=== PATIENT | male | born 1970 | race Caucasian/White ===

== ENCOUNTER 2019-12-04 08:03 | Emergency (ER) | payer SELFPAY ==
--- NOTE | ~2019-12-04 | XR_ITS ---
EXAMINATION: XR tibia fibula LT 2V INDICATION: Skin infection, leg pain TECHNIQUE: Two views of the left tibia and fibula are obtained. COMPARISON: None available FINDINGS: There is no fracture, dislocation, or subluxation. The bones and joint spaces are normal. S oft tissue swelling overlies the anterior aspect of the proximal tibia. No underlying osseous abnorma lity is identified. IMPRESSION: 1. Soft tissue swelling without acute osseous abnormality. Reviewed, dictated and finalized at location A.
[2019-12-04 08:08] VITALS: BP 133/82; PULSE 109; RESP 16; TEMP 37.2; O2SAT 100
--- NOTE | 2019-12-04 08:18 | ED.GENADULT ---
HPI - General Adult General Chief complaint: Extremity Injury, Lower Stated complaint: injury to left leg Time Seen by Provider: 12/04/19 08:06 Source: patient Mode of arrival: ambulatory Limitations: no limitations History of Present Illness HPI narrative: 49-year-old male patient presents to the [facility] with complaints of left leg pain for the past 10 days. Patient states he hit it on a metal bench about 10 days ago. Patient states it is now swollen, very painful to the touch, and warm. Patient states he has been taking Tylenol and ibuprofen for pain. Patient states he is able to walk on it but does have pain at times with walking on it. Patient denies any body aches, chills or fevers. Patient states his last tetanus shot was approximately less than 5 years ago. Related Data Allergies Allergy/AdvReac Type Severity Reaction Status Date / Time No Known Allergies Allergy Verified 12/04/19 08:22 Review of Systems Review of Systems: Narrative: CONSTITUTIONAL: Denies fever, chills, or sweats. EYES: Denies visual changes, redness, or discharge. ENT: Denies rhinorrhea, congestion, sore throat, or otalgia. CARDIOVASCULAR: Denies chest pain, palpitations, or edema. RESPIRATORY: Denies cough or dyspnea. GASTROINTESTINAL: Denies abdominal pain, nausea, vomiting, or diarrhea. GENITOURINARY: Denies dysuria or hematuria. SKIN: Denies rash or itching. Positive wound from trauma to left leg x10 days MUSCULOSKELETAL: Denies back pain, joint pain, or myalgia. NEUROLOGIC: Denies headache, numbness, or weakness. PSYCHIATRIC: Denies anxiety or depression. [facility] Social History Social History Substance use: never Comments At the time of my signature I agree with nursing past medical history, surgical, social, and family history. There is no relevant family history pertinent to the presenting complaint. Exam Narrative: Exam Narrative: GENERAL: Well-appearing, well-nourished, and in no acute distress. HEAD: Normocephalic, atraumatic. EYES: PERRLA and EOMI. ENT: Nares clear, no rhinorrhea or epistaxis. Mucous membranes moist. NECK: Supple. No lymphadenopathy CHEST: Clear to auscultation. No respiratory distress. HEART: Regular rate and rhythm. No murmur heard. Normal peripheral pulses. ABDOMEN: Soft, nontender, nondistended, normal active bowel sounds. EXTREMITIES: Normal range of motion. No edema. SKIN: Warm, dry, no rash. Patient has approximately 11 x 6 reddened area to the anterior tib-fib on the left leg. It is swollen, tender to the touch and slightly warm. Patient also has several healing abrasions noted under the wound that appear to be circular, scabbed over and superficial. The areas measure approximately 2 x 2 circular areas and there appears to be about 6 of them. There is no tenderness or warmth noted to the abrasion areas. NEURO: No focal deficits. Alert and oriented x3. Course Reevaluation(s) Reevaluation #1: Reevaluated patient after x-ray had resulted. Discussed with him that his x-ray looks okay in regards to there is no evidence of any damage to the bone or any infection to the bone. Discussed with him that I do believe this is most likely a cellulitis infection therefore we will discharge him home with some antibiotics. Discussed with patient he needs to continue to elevate the leg he can put heat on the area as needed. And continue taking Tylenol ibuprofen as needed for pain. Patient verbalized understanding of this denies any other questions or concerns at this time. Date: 12/04/19 Time: 08:51 Vital Signs Vital signs: Vital Signs Temperature 37.2 C 12/04/19 08:08 Pulse Rate 109 H 12/04/19 08:08 Respiratory Rate 16 12/04/19 08:08 Blood Pressure 133/82 12/04/19 08:08 Pulse Oximetry 100 12/04/19 08:08 Temperature 37.2 C 12/04/19 08:08 Pulse Rate 109 H 12/04/19 08:08 Respiratory Rate 16 12/04/19 08:08 Blood Pressure 133/82 /
== END 2019-12-04 08:55 | disposition home or self-care (01) ==
PROVIDERS: Emergency Provider Nurse Practitioner Family
DX: L03.116 Cellulitis of left lower limb (principal)
CPT/HCPCS: 73590; 99213; G0463

== ENCOUNTER 2020-11-01 11:43 | Emergency (ER) | payer OTHER, SELFPAY ==
[2020-11-01 11:52] VITALS: BP 131/99; PULSE 102; RESP 16; TEMP 36.8; O2SAT 100
--- NOTE | 2020-11-01 11:59 | ED.EYEPROB ---
HPI - Eye Problem General Chief complaint: Eye Problems Stated complaint: Metal in the left Eye Time Seen by Provider: 11/01/20 11:59 Source: patient, RN notes reviewed and old records reviewed Mode of arrival: ambulatory Limitations: no limitations History of Present Illness HPI Narrative: 50-year-old male who presents to [facility] with complaints of possibly getting a piece of metal in his left eye at work toda about 1.5 hours ago. 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 Patient states that he flushed his eye out at work but still feels like something is in his eye especially when blinking. Patient denies any acute vision changes, no sharp pain to his eye. MD chief complaint: foreign body Related Data Allergies Allergy/AdvReac Type Severity Reaction Status Date / Time No Known Allergies Allergy Verified 11/01/20 11:59 Review of Systems Review of Systems: CONSTITUTIONAL: Denies fever, chills, or sweats. EYES: Denies visual changes, redness to sclera feeling of something in left eye ENT: Denies rhinorrhea, congestion, sore throat, or otalgia. CARDIOVASCULAR: Denies chest pain, palpitations, or edema. RESPIRATORY: Denies cough or dyspnea. GASTROINTESTINAL: Denies abdominal pain, nausea, vomiting, or diarrhea. GENITOURINARY: Denies dysuria or hematuria. SKIN: Denies rash or itching. MUSCULOSKELETAL: Denies back pain, joint pain, or myalgia. NEUROLOGIC: Denies headache, numbness, or weakness. PSYCHIATRIC: Denies anxiety or depression. All systems reviewed & are unremarkable except as noted in HPI and below PMFSH Past Medical History Medical History (Updated 11/02/20 @ 21:58 by Bárbara Umaña NP) Wound infection left lower leg Surgical History Surgical History History of bilateral carpal tunnel release Family History Family History (Updated 11/01/20 @ 12:42 by Bárbara Umaña NP) Grandparent Heart disease Breast cancer Diabetes mellitus Father Heart disease Social History Social History (Updated 11/01/20 @ 12:39 by Bárbara Umaña NP) Smokeless tobacco user: chewing tobacco Second hand tobacco smoke exposure: No Alcohol intake: former Substance use: never Living arrangements: alone Gender identity (if verbalized by the patient): Male Comments At time of signature, agree with nursing past medical, surgical, social and family history. There is no relevant family history pertinent to the presenting complaint Exam Narrative: GENERAL: Well-appearing, well-nourished, and in no acute distress. HEAD: Normocephalic, atraumatic. EYES: PERRLA and EOMI.sclera of left eye is reddened and irritated has foreign body feeling, eye examination completed with no foreign body identified but corneal abrasion to left eye at 4 o'clock Visual acuity performed prior to procedure with no corrective lens worn both eyes 20/50 ENT: Nares clear, no rhinorrhea or epistaxis. Mucous membranes moist. NECK: Supple.no lymphadenopathy CHEST: Clear to auscultation. No respiratory distress.SAO2 100% on room air HEART: Regular rate and rhythm. No murmur heard. Normal peripheral pulses. ABDOMEN: Soft, nontender, nondistended, normal active bowel sounds. EXTREMITIES: Normal range of motion. No edema. SKIN: Warm, dry, no rash. NEURO: No focal deficits. Alert and oriented x3. Course Vital Signs Vital signs: Vital Signs Temperature 36.8 C 11/01/20 11:52 Pulse Rate 102 H 11/01/20 11:52 Respiratory Rate 16 11/01/20 11:52 Blood Pressure 131/99 H 11/01/20 11:52 Pulse Oximetry 100 11/01/20 11:52 Temperature 36.8 C 11/01/20 11:52 Pulse Rate 102 H 11/01/20 11:52 Respiratory Rate 16 11/01/20 11:52 Blood Pressure 131/99 H 11/01/20 11:52 Pulse Oximetry 100 11/01/20 11:52
== END 2020-11-01 12:20 | disposition home or self-care (01) ==
PROVIDERS: Emergency Provider Registered Nurse
DX: S05.02XA Injury of conjunctiva and corneal abrasion without foreign body, left eye, initial encounter (principal); X58.XXXA Exposure to other specified factors, initial encounter; F17.220 Nicotine dependence, chewing tobacco, uncomplicated
CPT/HCPCS: 99213; A9270; G0463

== ENCOUNTER 2021-10-19 09:46 | Emergency (ER) | payer MEDICAID, SELFPAY ==
[2021-10-19 09:50] VITALS: BP 120/85; PULSE 105; RESP 16; TEMP 36.9; O2SAT 100
--- NOTE | 2021-10-19 09:57 | WPDEDEXPGENP ---
HPI - General Ped General Chief complaint: Unspecified Stated complaint: need meds Time Seen by Provider: 10/19/21 10:10 Source: patient Mode of arrival: ambulatory Limitations: no limitations History of Present Illness HPI narrative: 51-year-old male presented requesting refill on Lantus insulin, stating he has been out for at least 4 months and he is starting to feel it. Endorses tingling in hands and feet, dizziness and nausea yesterday, dizziness, increased thirst and urination. States he feels worn out. Endorses original prescription for Lantus was from an inpatient hospitalization several months ago and was told 1 level was 385, another level was 10. Patient has a glucometer, however he states it has been and he has no strips. Denies chest pain, palpitations, shortness of breath, vomiting, fevers or chills. He does not have a PCP. Related Data Home Medications Medication Instructions Recorded Confirmed No Home Medications 10/19/21 10/19/21 Allergies Allergy/AdvReac Type Severity Reaction Status Date / Time No Known Allergies Allergy Verified 10/19/21 10:07 Pediatric Review of Systems Review of Systems: CONSTITUTIONAL: Denies body aches, fever, chills, or sweats. EYES: Denies visual changes, redness, or discharge. ENT: Denies rhinorrhea, congestion, sore throat, or otalgia. CARDIOVASCULAR: Denies chest pain, palpitations, or edema. RESPIRATORY: Denies cough or dyspnea. GASTROINTESTINAL: Denies abdominal pain, vomiting, or diarrhea. GENITOURINARY: Denies dysuria or hematuria. SKIN: Denies rash, or wounds. MUSCULOSKELETAL: Denies back pain, joint pain, or myalgia. NEUROLOGIC: Denies headache PMFSH Past Medical History Medical History Wound infection left lower leg Surgical History Surgical History History of bilateral carpal tunnel release Family History Family History Grandparent Heart disease Breast cancer Diabetes mellitus Father Heart disease Social History Social History Smokeless tobacco user: chewing tobacco Second hand tobacco smoke exposure: No Alcohol intake: former Substance use: never Gender identity (if verbalized by the patient): Male Comments At time of signature, I have reviewed and agree with nursing past medical, surgical, social and family history unless otherwise noted. Please see nursing chart for further information. There is no relevant family history pertinent to the presenting complaint Pediatric Exam Narrative: Physical exam: GENERAL: Well-appearing EYES: EOMI. Conjunctivae normal. ENT: Mucous membranes pink and moist. No rhinorrhea. CHEST: Clear to auscultation. HEART: Regular rate and rhythm. Normal peripheral pulses. ABDOMEN: Soft, nontender, nondistended, normal active bowel sounds. EXTREMITIES: Normal range of motion. No edema. SKIN: Warm, dry, no rash. Capillary refill normal. Normal skin turgor. NEURO: No focal deficits. Alert and oriented x3. Gait steady. PSYCH: Normal affect. General: Limitations: no limitations Course Course Emergency Course: Patient is aware of diagnosis, understands and agrees to treatment plan. Anticipatory guidance given. Portions of this record may have been created with voice recognition software Level of Care: Express Care Visit Vital Signs Vital signs: Vital Signs Temperature 98.5 F 10/19/21 09:50 Pulse Rate 105 H 10/19/21 09:50 Respiratory Rate 16 10/19/21 09:50 Blood Pressure 120/85 10/19/21 09:50 Pulse Oximetry 100 10/19/21 09:50 Oxygen Delivery Room Air 10/19/21 09:50 Temperature 98.5 F 10/19/21 09:50 Pulse Rate 105 H 10/19/21 09:50 Respiratory Rate 16 10/19/21 09:50 Blood Pressure 120/85 10/19/21 09:50 Pulse O
[2021-10-19 10:25] LABS: Glucose Point of Care > 500 mg/dl (65-105)
== END 2021-10-19 10:37 | disposition short-term general hospital (02) ==
PROVIDERS: Emergency Provider Nurse Practitioner Family
DX: E11.65 Type 2 diabetes mellitus with hyperglycemia (principal); F17.220 Nicotine dependence, chewing tobacco, uncomplicated
CPT/HCPCS: 82948; 99212; G0463

== ENCOUNTER 2025-03-26 11:08 | Emergency (ER) | payer MEDICAID, SELFPAY ==
--- NOTE | ~2025-03-26 | XR_ITS ---
Examination: XR chest 2V Clinical History: cough/sob Comparison: None Technique: PA and Lateral Findings: Cardiomediastinal silhouette normal size and configuration. Lungs clear. No acute bony abnormality. IMPRESSION: 1. No acute cardiopulmonary findings. Reviewed, dictated and finalized at location [facility]
--- OUTSIDE RECORDS SUMMARY | 2025-03-26 11:11 | XMS_ITS | Encounter Summary ---
Author Organization [facility] Address [address] [place] [id number] Care Team Providers Care Statement Clerks Supervisor Name Role Phone None, Provider Primary Care Provider Unavaila ble Reason for Visit * Reason Onset Date Comments Follow Up Call 01/09/2020 Encounter Details Date Type Department Care Team (Late st Contact Info) Description 01/09/2020 Telephone [facility] Med/Surg [id number] [place] [address] Dennis Garay CNA Follow Up Call Social History Tobacco Use Types Packs/Day Years Used Date Smoking Tobacco: Never Smokeless Tobacco: Current Chew Alcohol Use Standard Drinks/Week Comments Never 0 (1 standard drink = 0.6 oz pur e alcohol) AUDIT-C Answer Date Recorded Q1: How often do you have a drink containing alc ohol? Never 12/08/2019 Average Number of Drinks Not on file 020 Frequency of Binge Drinking Not on file 10/2019 Sex and Gender Information Value Date Recorded Sex Assigned at Not on file Legal Sex Male 7:32 AM CDT Gender Identity Not on file Sexual Orientation Not on file COVID-19 Exposure Response Date Recorded In the last month, have you been in contact with someone who was confirmed or suspected to have Coronavirus / COVID-19? No / Unsure 01/12/2020 8:04 AM CDT documented as of this encounter Functional Status * RETIRED Are you deaf or do you have serious difficulty hearing Answer Date of Assessment Author Status No 12/08/2019 11:37 AM CDT Acti ve * RETIRED Are you blind or do you have serious difficulty seeing, even when wearing glasses? Answer Date of Assessment Author Status No 12/08/2019 11:37 AM LIO Acti ve * Do you have serious difficulty walking or climbing stairs? Answer Date of Assessment Author Status No 12/08/2019 11:37 AM Juliette Gambino RN Active * Do you have difficulty dressing or bathing? Answer Date of Assessment Author Status No 12/08/2019 11:37 AM Juliette Gambino RN Active * Because of a physical, mental, or emotional condition, do you have difficulty doing errands alone such as visiting a doctor's office or shopping? Answer Date of Assessment Author Status No 12/08/2019 11:37 AM Juliette Gambino RN Active documented as of this encounter Mental Status * Because of a physical, mental, or emotional condition, do you have serious difficulty concentrating, remembering, or making decisions? Answer Entry Date Author Status No 12/08/2019 11:37 AM Juliette Gambino RN Active documented in this encounter Plan of Treatment Not on file documented as of this encounter Goals Goal Patient Goal Type Associated Problems Recent Progress Patient-Stated? Author HOME TO INDEPENDENT LIVING General No Jamia Valentin RN documented as of this encounter Visit Diagnoses Not on filedocumented in this encounter Care Teams Statement Clerks Supervisor Relationship Specialty Start Date End Date None, Provider, PCP - General 12/08/19 documented as of this encounter
--- OUTSIDE RECORDS SUMMARY | 2025-03-26 11:11 | XMS_ITS | Clinical Summary ---
Author Organization [facility] Address [address] [place] [id number] Care Team Providers Care Safety Deposit Supervisor Name Role Phone None, Provider MD Primary Care Provider Unavaila ble Allergies No known active allergies Medications insulin glargine 100 UNIT/ML injection (VIAL) Inject 20 Units into the skin nightly at bedtime. 1 vial 3 0 Active Insulin Syringes, Disposable, U-100 0.3 ML Misc 1 Container by Does not apply route daily as needed. 1 each 3 0 Active glipiZIDE (GLUCOTROL) 5 MG tablet Take 1 tablet (5 mg total) by mouth every morning before breakfast. 30 tablet 4 Active magnesium oxide (MAG-OX) 400 (240 Mg) MG tablet Take 1 tablet (400 mg total) by mouth 2 (two) times daily. 4 Active Active Problems Problem Noted Date Diagnosed Date Cellulitis 09/09/2023 Diabetic polyneuropathy asso ciated with type 2 diabetes mellitus 10/30/2021 Erectile dysfunction 10/30/2021 Cellulitis of left leg 12/08/2019 Type 2 diabetes mellitus 12/08/2019 Family History Medical History Relation Comments Diabetes Father Heart Disease Father Relation Status Comments Father Mother Social History Tobacco Use Types Packs/Day Years Used Date Smoking Tobacco: Never Smokeless Tobacco: Current Chew Tobacco Cessation:Ready to Q uit: No; Counseling Given: Yes Alcohol Use Standard Drinks/Week Comments Yes 0 (1 standard drink = 0.6 oz pur e alcohol) 2-3 times a year [id number] Health Literacy Answer Date Recor ded How often do you need to hav e someone help you when you read instructions, pamphlets, or other written material from your doctor or pharmacy? Never 09/09/2023 [facility] Utilities Answer Date Recorded In the past 12 months has e [employer], gas, oil, or water farmhopping threatened to shut off services in your home? No 09/09/2023 Humiliation, Afraid, Rape, and Kick questionnair e Answer Date Recorded Within the last year, have y ou been afraid of your partner or ex-partner? No 09/09/2023 Within the last year, have y ou been humiliated or emotionally abused in other ways by your partner or ex-partner? No Within the last year, have y ou been kicked, hit, slapped, or otherwise physically hurt by your partner or ex-partner? No 09/09/2023 Within the last year, have y ou been raped or forced to have any kind of sexual activity by your partner or ex-partner? No 09/09/2023 Social Connection and Isolation Panel Answer Date Recorded In a typical week, how many times do you talk on the phone with family, friends, or neighbors? More than three times a week 09/09/2023 How often do you get togethe r with friends or relatives? Twice a week 09/09/2023 How often do you attend chur ch or rastafari services? Never 09/09/2023 Do you belong to any clubs o r organizations such as christianity groups, unions, fraternal or athletic groups, or school groups? No 09/09/2023 How often do you attend meet ings of the clubs or organizations you belong to? Never 09/09/2023 Are you , , di vorced, , never , or living with a partner? 09/09/2023 AUDIT-C Answer Date Recorded Q1: How often do you have a drink containing alcohol? Never 09/09/2023 Q2: How many drinks containi ng alcohol do you have on a typical day when you are drinking? Patient does not drink Q3: How often do you have si x or more drinks on one occasion? Never 09/09/2023 Overall Financial Resource Strain (CARDIA) Answe r Date Recorded How hard is it for you to pa y for the very basics like food, housing, medical care, and heating? Not hard at all 09/09/2023 PHQ-2 Answer Date Recorded Patient Health Questionnaire-2 Score 0 09/09/2023 [facility] [place] [facility] - Occupational Stress Questionnaire Answer Date Recorded Do you feel stress - tense, restless, nervous, or anxious, or unable to sleep at night because your mind is troubled all the time - these days? Not at all 09/09/2023 Exercise Vital Sign Answer Date Recorde d On average, how many days pe r week do you engage in moderate to strenuous exercise (like a brisk walk)? 0 days 09/09/2023 On average, how many minutes do you engage in exercise at this level? 0 min 09/09/2023 Hunger Vital Sign Answer Date Recorded Within the past 12 months, y ou worried that your food would run out before you got the money to buy more. Never true 09/09/19 24 Within the past 12 months, t he food you bought just didn't last and you didn't have money to get more. Never true 09/09/2023 PRAPARE - Transportation Answer Date Re corded In the past 12 months, has l ack of transportation kept you from medical appointments or from getting medications? No 08/30 In the past 12 months, has l ack of transportation kept you from meetings, work, or from getting things needed for daily living? No 09/09/2023 Housing Stability Vital Sign Answer Kishore e Recorded In the last 12 months, was t here a time when you were not able to pay the mortgage or rent on time? No 09/09/2023 In the past 12 months, how m any times have you moved where you were living? 1 09/09/2023 At any time in the past 12 m [facility], were you homeless or living in a mcc (including now)? No 09/09/2023 Sex and Gender Information Value Date Recorded Sex Assigned at Not on file Legal Sex Male 7:32 AM CDT Gender Identity Not on file Sexual Orientation Not on file Last Filed Vital Signs Vital Sign Reading Time Taken Comments Blood Pressure 122/83 09/23/2023 10:19 PM CDT Pulse 112 09/23/2023 10:19 PM CDT Temperature 37 C (98.6 F) 09/23/2023 10:19 PM CDT Respiratory Rate 19 09/23/2023 10:1 9 PM CDT Oxygen Saturation 97% 09/23/2023 10: 19 PM CDT Inhaled Oxygen Concentration - - Weight 84.3 kg (185 lb 13.6 oz) 09/23/2023 8:08 PM CDT Height 180.3 cm (5' 11) 09/23/2023 8:08 PM CDT Body Mass Index 25.92 09/23/2023 8:08 PM CDT Plan of Treatment Health Maintenance Due Date Last Done Comments Colorectal Cancer Screening Colonoscopy (10 Years) 1971 Kidney Health Evaluation 1971 Annual Physical 10/17/1974 Diabetes: Retinopathy Eye Exam 10/17/1989 Hepatitis C 10/17/1989 DTaP, Tdap and Td Vaccines ( 1 - Tdap) 10/17/1990 Hepatitis B Vaccines (1 of 3 - 19+ 3-dose series) 10/17/1990 Zoster Vaccines (1 of 2) 10/17/2021 Hemoglobin A1C 12/10/2023 09/09/2023, 10/19/2021, 12/09/2019 Lipid Panel 09/08/2024 09/09/2023, 12/09/2019 COVID-19 Vaccine (3 - 2024-2 6 season) 2024 10/06/2020, 09/08/2020 Influenza Adult (#1) 2024 02/12/2022 Pneumococcal Vaccine: 50+ Years Completed 10/30/2021 Hepatitis A Vaccines Aged Out No long er eligible based on patient's age to complete this topic Meningococcal B Vaccine Aged Out No l onger eligible based on patient's age to complete this topic Meningococcal Vaccine Aged Out No herber dinh eligible based on patient's age to complete this topic RSV Immunizations Under 20 Months Aged Out No longer eligible b ased on patient's age to complete this topic Goals Goal Patient Goal Type Associated Problems Recent Progress Patient-Stated? Author HOME TO INDEPENDENT LIVING [facility] No Jamia Valentin cloth sponger Procedure Name Priority Date/Time Associated Diagnosis Comments LIPID PANEL STAT 09/09/2023 5:35 AM CDT HEMOGLOBIN, GLYCOSYLATED STAT 09/09/2023 5:35 AM CDT from Last 3 Months or Most Recently Relevant to Health Maintenance Results * (ABNORMAL) HEMOGLOBIN, GLYCATED (09/09/2023 5:35 AM CDT) HGB A1C 11.2(H) <5.7 % 09/09/2023 6:52 AM CDT [facility] Comment: INCREASED RISK OF DIABETES <5.7% NON-DIABETES 5.7-6.4% INCREASED RISK FOR FUTURE DIABETES > OR = 6.5 CONSISTENT WITH DIABETES STANDARDS OF MEDICAL CARE IN DIABETES-2010 DIABETES CARE, 33(SUPP 1): S1-S61,2010 ESTIMATED AVG GLUCOSE 275 mg/dL 09/09/2023 6:52 AM CDT [facility] 09/09/2023 5:35 AM CDT Jeffrey Chambers MD LABORATORY Final Result [facility] [address] [place] [address], [place] [phone] * LIPID PANEL (09/09/2023 5:35 AM CDT) Pathologist [facility] CHOLESTEROL 110 <200.0 MG/DL 09/09/2023 6:34 AM CDT [facility] TRIGLYCERIDES 34 <150 MG/DL 09/09/2023 6:34 AM CDT [facility] HDL 53 >40.0 MG/DL 09/09/2023 6:34 AM CDT [facility] LDL (CALCULATED) 50 <100 MG/DL 09/09/19 6:34 AM CDT [facility] NON HDL CHOLESTEROL 57 <130 MG/DL 09/08 6:34 AM CDT [facility] CHOL/HDL RATIO 2.1 0.0 - 4.5 09/09/2023 6:34 AM CDT [facility] VLDL CALCULATION 7 5 - 55 MG/DL 09/09/2023 6:34 AM CDT [facility] LIPID INTERPRETATION 09/09/2023 6:34 AM CDT [facility] Comment: NIH CONCENSUS REPORT RECOMMENDATIONS: ADULT CHILD LOW RISK: CHOLESTEROL <200 <170 TRIGLYCERIDE <150 --- HDL >=60 --- LDL <100 <110 BORDERLINE: CHOLESTEROL 200-239 170-199 TRIGLYCERIDE 150-199 --- HDL 40-59 --- LDL 100-159 110-129 HIGH RISK: CHOLESTEROL >=240 >=200 TRIGLYCERIDE >=200 --- HDL <40 --- LDL >=160 >=130 09/09/2023 5:35 AM CDT Jeffrey Chambers MD LABORATORY Final Result Performing Organization Address City/State/[facility] Co de Phone Number [facility] [address] [place] [address], [place] [phone] from Last 3 Months or Most Recently Relevant to Health Maintenance Insurance [employer] [place] Advance Directives * Full Code (Latest Code Status on File) Date Activated Date Inactivated Comments 09/09/2023 1:50 AM 09/13/2023 2:39 PM * Full Code Date Activated Date Inactivated Comments 12/08/2019 12:21 PM 12/11/2019 3:18 PM Care Teams Safety Deposit Supervisor Relationship Specialty Start Date End Date None, Provider, PCP - General 12/08/19
--- OUTSIDE RECORDS SUMMARY | 2025-03-26 11:11 | XMS_ITS | Clinical Summary ---
Author Organization [facility] Address [address] [place] [address] Phone Care Team Providers Care Paintings Conservator Name Role Phone Josi Kidd MD Unavailable [phone] Leonides Lemons DO Primary Care Provider [phone] Allergies No known active allergies Medications Blood Glucose Monitoring Suppl DeviceIndications :Uncontrolled type 2 diabetes mellitus with hyperglycemia Diagnosis: Diabetes type 2 Blood testing frequency: 2-3 times a day E11.65 1 Each 10/24/19 Active Glucose Blood StripIndications: Uncontrolled type 2 diabetes mellitus with hyperglycemia Use to test blood glucose 2-3 times daily. E11.65 100 Strip 11 10/24/19 Active Lancets MiscIndications:U ncontrolled type 2 diabetes mellitus with hyperglycemia Use to test blood glucose 2-3 times daily. E11.65 100 Lancet 11 10/24/19 Active tadalafil (CIALIS) 20 MG TabletIndications :Erectile dysfunction due to diseases classified elsewhere Take 1 Tablet by mouth as needed for Erectile Dysfunction. Take 1 hour prior to sexual activity. 10 Tablet 1 10/31/19 Active Additional Information Patient not taking.Reported on 02/12/2022 Insulin Pen Needle (BD ULTRA-FINE PEN NEEDLES) 29G X 12.7MM MiscIndications:T ype 2 diabetes mellitus with hyperglycemia, with long-term current use of insulin Use with insulin pen as directed. 100 Each 10/31/19 Active ibuprofen (MOTRIN) 800 MG TabletIndications :Acute pain of left shoulder Take 1 Tablet by mouth every 8 hours as needed for Moderate or more severe pain. 90 Tablet 1 11/14/19 Active Additional Information Patient not taking.Reported on 02/12/2022 metFORMIN (GLUCOPHAGE) 1000 MG TabletIndications :Diabetic retinopathy associated with type 2 diabetes mellitus, macular edema presence unspecified, unspecified laterality, unspecified retinopathy severity Take 1 Tablet by mouth 2 times daily (with meals). 180 Tablet 3 11/14/19 Active gabapentin (NEURONTIN) 100 MG CapsuleIndication s:Diabetic peripheral neuropathy associated with type 2 diabetes mellitus Take 1 Capsule by mouth 3 times daily. 90 Capsule 3 02/13/20 Active insulin glargine (LANTUS, BASAGLAR) 100 UNIT/ML Solution Pen-injectorIndic ations:Type 2 diabetes mellitus with hyperglycemia, with long-term current use of insulin 15 Units by Subcutaneous route every evening. 15 mL 02/13/20 Active glipiZIDE (GLUCOTROL) 5 MG TabletIndications :Type 2 diabetes mellitus with hyperglycemia, with long-term current use of insulin Take 1 Tablet by mouth daily after breakfast. 90 Tablet 3 02/13/20 Active Active Problems Problem Noted Date Diagnosed Date Erectile dysfunction 10/30/2021 Diabetic polyneuropathy asso ciated with type 2 diabetes mellitus 10/30/2021 Type 2 diabetes mellitus 12/08/2019 Immunizations Immunization Administration Dates Next Due Influenza Vaccine, Quadrivalent, PF 02/12/2022 Pneumococcal conjugate PCV20 , polysaccharide [id number] conjugate, adjuvant, PF 10/30/2021 Social History Tobacco Use Types Packs/Day Years Used Date Smoking Tobacco: Some Days Cigars Smokeless Tobacco: Current Chew Tobacco Cessation:Ready to Q uit: Not Asked; Counseling Given: Not Answered Comments:3 to 4 cigars a year Alcohol Use Standard Drinks/Week Comments Not Currently 0 (1 standard drink = 0.6 oz pur e alcohol) Sexually Active Control Partners Comments Yes None Female Sex and Gender Information Value Date Recorded Sex Assigned at Not on file Legal Sex Male 11:05 AM CDT Gender Identity Not on file Sexual Orientation Not on file Last Filed Vital Signs Vital Sign Reading Time Taken Comments Blood Pressure 140/70 02/12/2022 8:43 AM LINER CHECKER Pulse 95 02/12/2022 8:43 AM LINER CHECKER Temperature 36.8 C (98.2 F) 02/12/2022 8:43 AM LINER CHECKER Respiratory Rate 14 02/12/2022 8:43 AM LINER CHECKER Oxygen Saturation 100% 02/12/2022 8:43 AM LINER CHECKER Inhaled Oxygen Concentration - - Weight 81.1 kg (178 lb 11.2 oz) 02/12/2022 8:43 AM LINER CHECKER Height 180.3 cm (5' 11) 02/12/2022 8:43 AM LINER CHECKER Body Mass Index 24.92 02/12/2022 8:43 AM LINER CHECKER Plan of Treatment Health Maintenance Due Date Last Done Comments Diabetes: Foot Exam 1971 Hepatitis C Virus (HCV) Screening 1971 TdaP Immunization 1971 Hepatitis B Immunization (1 of 3 - 19+ 3-dose series) 10/17/1990 Cologuard 10/17/2016 Colonoscopy 10/17/2016 Colorectal Cancer Screening 10/17/2016 Immunochemical Fecal Occult Blood 10/17/2016 Respiratory Syncytial Virus (RSV) Immunization (Adult) (1 - Risk 50-74 years 1-dose series) 10/17/2021 Zoster Immunization (1 of 2) 10/17/2021 Diabetes: Hemoglobin A1c 08/12/2022 022, 10/19/2021, 12/09/2019 Diabetes: Nephropathy Screening 10/30/2022 10/30/2021, 10/19/2021 Diabetes: Eye Exam 11/13/2022 11/13/2021 Influenza Immunization (#1) 2024 02/12/2022 SARS-COV-2 Immunization ( season) 2024 10/06/2020, 09/08/2020 Pneumococcal Immunization (5 0+ years) Completed 10/30/2021 Pneumococcal Immunization Combined Discontinued 10/30/2021 Human Papillomavirus (HPV) Immunization (No Doses Required) Completed Meningococcal Immunization (ACWY) Aged Out No longer eligible based on patient's age to complete this topic Rotavirus Immunization Aged Out No lo nger eligible based on patient's age to complete this topic Procedures Procedure Name Priority Date/Time Associated Diagnosis Comments POCT GLYCOSYLATED HEMOGLOBIN Routine 02/12/2022 8:53 AM LINER CHECKER Type 2 diabetes mellitus with hyperglycemia, with long-term current use of insulin (HCC) DIABETIC BILATERAL RETINAL IMAGING WITH COMPUTERIZED INTERPRETATION Routine 11/13/2021 8:32 AM CDT Type 2 diabetes mellitus with hyperglycemia, with long-term current use of insulin (HCC) UR MICROALBUMIN/CREATININE RATIO RANDOM Routine 10/30/2021 9:57 AM CDT Type 2 diabetes mellitus with hyperglycemia, with long-term current use of insulin (HCC) from Last 3 Months or Most Recently Relevant to Health Maintenance Results * (ABNORMAL) POCT GLYCOSYLATED HEMOGLOBIN (02/12/2022 8:53 AM LINER CHECKER) [facility] HGB-A1C 6.9(A) 4 - 6 POC Glucose 02/12/2022 8:53 AM LINER CHECKER Tez Sampson APRN, CNP POINT OF CARE TE STING (MANUAL) Final Result * (ABNORMAL) DIABETIC BILATERAL RETINAL IMAGING WITH COMPUTERIZED INTERPRETATION (11/13/2021 8:32 AM CDT) [facility] DIABETIC BILATERAL DIGITAL RETINAL IMAGING Diabetic Retinopathy Detected: ETDRS level 35 or higher and/or Diabetic Macular Edema(A) DIGITAL DIAGNOSTICS Comment: Next Steps: Refer to flooring professional IDx Submission ID: [id number] Results were produced by a system that provides an artificial intelligence (AI) interpretation A positive result indicates a high risk of diabetic retinopathy with a severity of ETDRS level 35 or higher and/or macular edema. IDx-DR diabetic retinopathy exam does not replace a comprehensive eye exam. Other 11/13/2021 8:32 AM CDT Tez Sampson APRN, CNP OUTPT PROCEDURE ORDERABLES Final Result EXTERNAL EKG DIGITAL DIAGNOSTICS * (ABNORMAL) UR MICROALBUMIN/CREATININE RATIO RANDOM (10/30/2021 9:57 AM CDT) [facility] RAN UR MICROALBUMIN 6.27(H) <=2.00 mg/dL 10/30/2021 1:29 PM CDT [facility] CREATININE URINE 69.5 39.0 - 259.0 mg/dL 10/30/2021 1:29 PM CDT [facility] ALB/CREAT RATIO 90(H) 1 - 30 mg/g CRE 10/30/2021 1:29 PM CDT [facility] Urine Non-Phlebotomy Collection / Unknown 10/30/2021 9:57 AM CDT 10/30/2021 9:57 AM CDT us Tez Sampson APRN, CNP URINE ORDERABLES Final Result [facility] [address] [place] [address] from Last 3 Months or Most Recently Relevant to Health Maintenance Care Teams Paintings Conservator Relationship Specialty Start Date End Date Leonides Lemons DO [address] [place] [address] PCP - General Family Medicine 04/29/24 Jsoi Kidd MD [address] [address] Consulting Physician Urology 12/01/21
--- OUTSIDE RECORDS SUMMARY | 2025-03-26 11:11 | XMS_ITS | Encounter Summary ---
Author Organization [facility] Address [address] [place] [address] Care Team Providers Care Peoplesoft Functional Analyst Name Role Phone Unavailable Primary Care Provider Unavailabl e Encounter Details Date Type Department Care Team (Late st Contact Info) Description 09/09/2000 Outpatient Historical [facility] [address] [address] Jordin Bocanegra Social History Tobacco Use Types Packs/Day Years Used Date Smoking Tobacco: Never Assessed Sex and Gender Information Value Date Recorded Sex Assigned at Not on file Legal Sex Male 3:50 AM PROGRESSIVE CARE NURSE Gender Identity Not on file Sexual Orientation Not on file documented as of this encounter Plan of Treatment Not on file documented as of this encounter Visit Diagnoses Not on filedocumented in this encounter
--- OUTSIDE RECORDS SUMMARY | 2025-03-26 11:11 | XMS_ITS | Encounter Summary ---
Author Organization [facility] Address [address] [place] [address] Care Team Providers Care Loader Operator Supervisor Name Role Phone Unavailable Primary Care Provider Unavailabl e Encounter Details Date Type Department Care Team (Late st Contact Info) Description 04/18/2000 Outpatient Historical [facility] Medicine [address] [place] [address] Jordin Bocanegra Social History Tobacco Use Types Packs/Day Years Used Date Smoking Tobacco: Never Assessed Sex and Gender Information Value Date Recorded Sex Assigned at Not on file Legal Sex Male 3:50 AM INTERIOR DESIGN DIRECTOR Gender Identity Not on file Sexual Orientation Not on file documented as of this encounter Plan of Treatment Not on file documented as of this encounter Visit Diagnoses Not on filedocumented in this encounter
--- OUTSIDE RECORDS SUMMARY | 2025-03-26 11:11 | XMS_ITS | Encounter Summary ---
Author Organization [facility] Address [address] [place] [address] Care Team Providers Care Proc Tech Name Role Phone Unavailable Primary Care Provider Unavailabl e Encounter Details Date Type Department Care Team (Late st Contact Info) Description 03/06/2001 Outpatient Historical [facility] [address] [address] Jordin Bocanegra Social History Tobacco Use Types Packs/Day Years Used Date Smoking Tobacco: Never Assessed Sex and Gender Information Value Date Recorded Sex Assigned at Not on file Legal Sex Male 3:50 AM CHURN OPERATOR Gender Identity Not on file Sexual Orientation Not on file documented as of this encounter Plan of Treatment Not on file documented as of this encounter Visit Diagnoses Not on filedocumented in this encounter
--- OUTSIDE RECORDS SUMMARY | 2025-03-26 11:14 | XMS_ITS | Clinical Summary ---
Author Organization [facility] hew[facility] Address [address] [address] Care Team Providers Care Investigator Internal Affairs Name Role Phone Unavailable Primary Care Provider Unavailabl e Allergies No known active allergies Medications metFORMIN (GLUCOPHAGE) 1,000 mg tablet Take 1,000 mg by mouth. 2 Active insulin glargine (LANTUS) 100 unit/mL pen syringe Inject 15 Units by subcutaneous injection. 2 Active glipiZIDE (GLUCOTROL) 5 mg tablet Take 5 mg by mouth. 2 Active Active Problems Problem Noted Date Diagnosed Date Diabetic polyneuropathy asso ciated with type 2 diabetes mellitus 10/30/2021 Erectile dysfunction 10/30/2021 Cellulitis of left leg 12/08/2019 Type 2 diabetes mellitus 12/08/2019 Social History Tobacco Use Types Packs/Day Years Used Date Smoking Tobacco: Unknown Smokeless Tobacco: Never Tobacco Cessation:Counseling Given: Not Answered Alcohol Use Standard Drinks/Week Comments Not Currently 0 (1 standard drink = 0.6 oz pur e alcohol) Sex and Gender Information Value Date Recorded Sex Assigned at Not on file Legal Sex Male 3:50 AM APPLIED MATHEMATICIAN Gender Identity Not on file Sexual Orientation Not on file Last Filed Vital Signs Vital Sign Reading Time Taken Comments Blood Pressure 127/86 09/06/2023 5:00 PM CDT Pulse 102 09/06/2023 5:00 PM CDT Temperature 36.5 C (97.7 F) 09/06/2023 5:00 PM CDT Respiratory Rate 18 09/06/2023 5:00 PM CDT Oxygen Saturation 98% 09/06/2023 5:00 PM CDT Inhaled Oxygen Concentration - - Weight 80.7 kg (178 lb) 09/06/2023 5:00 PM CDT Height 180.3 cm (5' 11) 09/06/2023 5:00 PM CDT Body Mass Index 24.83 09/06/2023 5:00 PM CDT Plan of Treatment Health Maintenance Due Date Last Done Comments DIABETES ANNUAL FOOT EXAM 10/17/1989 DIABETES MICROALBUMIN ANNUAL SCREEN 10/17/1989 LDL CHOLESTEROL ANNUAL 10/17/1989 DTAP/TDAP/TD VACCINES (1 - Tdap) 10/17/1990 HEPATITIS B VACCINES (1 of 3 - 19+ 3-dose series) 10/17/1990 COLORECTAL SCREENING 10/17/2016 Colorectal Cancer Screening 10/17/2016 FIT-DNA Q 3 years 10/17/2016 FIT/FOBT Q 1 year 10/17/2016 Flex Sig/CT Colonography Q 5 years 10/17/2016 ZOSTER VACCINE (1 of 2) 10/17/2021 DIABETES HBA1C Q 6 MONTHS 08/12/2022 02/12/2022, DIABETES ANNUAL RETINAL EXAM 11/13/2022 11/13/2021 INFLUENZA VACCINE (#1) 2024 02/12/2022 Insurance [employer] CHOICE POS II
[2025-03-26 11:18] VITALS: BP 138/97; PULSE 128; RESP 20; TEMP 36.7; O2SAT 100
--- NOTE | 2025-03-26 11:26 | ED.URI ---
HPI - URI/Sore Throat General Chief Complaint: Upper Respiratory Infection Stated Complaint: Chest Congestion/Cough Time Seen by Provider: 03/26/25 11:10 Source: patient Mode of arrival: ambulatory Limitations: no limitations History of Present Illness HPI Narrative: Taqueria is a 54-year-old male patient presenting to the clinic today with complaints of chest congestion and productive cough with some white yellowish phlegm. She reports symptoms have been going on for approximately 2 weeks. Denies any chest pain but does have some shortness of breath. He is a nonsmoker. Has been taking [id number] cough cold medicine. Related Data Allergies Allergy/AdvReac Type Severity Reaction Status Date / Time No Known Allergies Allergy Verified 03/26/25 11:10 Review of Systems Review of Systems: Pertinent positives per HPI. Patient denies any fever, chills, rash, headache, visual changes, dizziness, chest pain, palpitations, nausea, vomiting, diarrhea, constipation, abdominal pain, or any urinary issues. [facility] Past Medical History Medical History Wound infection left lower leg Surgical History Surgical History History of bilateral carpal tunnel release Family History Family History Grandparent Heart disease Breast cancer Diabetes mellitus Father Heart disease Social History Social History Smokeless tobacco user: chewing tobacco Second hand tobacco smoke exposure: No Alcohol intake: former Substance use: never Living arrangements: alone Gender identity (if verbalized by the patient): Male Comments At the time of my signature, I reviewed and agree with the nursing past medical, surgical, social, and family history. There is no relevant family history pertinent to the patient complaint. Exam Narrative: General: Well-developed, well nourished, in no apparent distress Head: Normocephalic, atraumatic Eyes: Pupils equally round and reactive to light bilaterally, EOM intact, sclera and conjunctive clear, no discharge, lids normal Ears: TMs intact and clear, ear canals clear, no drainage, grossly hearing normal. Nose: Nares patent, no discharge, no inflammation, no sinus tenderness. Mouth: Oral pharynx without lesions or masses, good dentition, MMM. Neck: Supple, trachea midline, no enlargement of anterior or posterior cervical nodes, no thyroid masses or goiter palpable. Cardio: Regular rate and rhythm, s1 and s2 normal, no murmur appreciated. Resp: Inspiratory rhonchi with expiratory wheezing throughout lung cintron, no rales or rubs Course Course Level of Care: Express Care Visit Vital Signs Vital signs: Vital Signs Temperature 36.7 C 03/26/25 11:18 Pulse Rate 128 H 03/26/25 11:18 Respiratory Rate 20 03/26/25 11:18 Blood Pressure 138/97 H 03/26/25 11:18 Pulse Oximetry 100 03/26/25 11:18 Oxygen Delivery Room Air 03/26/25 11:18 Temperature 36.7 C 03/26/25 11:18 Pulse Rate 128 H 03/26/25 11:18 Respiratory Rate 20 03/26/25 11:18 Blood Pressure 138/97 H 03/26/25 11:18 Pulse Oximetry 100 03/26/25 11:18 Oxygen Delivery Room Air 03/26/25 11:18 [facility] MDM Narrative Medical decision making narrative: At the time of visit patient is resting comfortably on the exam table. Patient appears to be nontoxic. Complaints of chest congestion and productive cough with some white yellowish phlegm. She reports symptoms have been going on for approximately 2 weeks. Denies any chest pain but does have some shortness of breath. He is a nonsmoker. Has been taking [id number] cough cold medicine. On exam patient has bilateral TMs intact and clear, no nasal drainage, no anterior turbinate inflammation, lung sounds with inspiratory rhonchi and expiratory wheezing, heart rates regular rate and rhythm i-tachycardic. Patient is able speak in full sentences an oxygen saturations 100% on room air. Chest x-ray was ordered. Diagnostics: Chest x-ray was performed is negative for any acute cardiopulmonary process. Plan: I suspect patient has bronchitis. Supportive measures were discussed with the patient and they voiced understanding discharge instructions and agrees to treatment plan. Return precautions reviewed Differential Diagnosis Differential Diagnosis: Differential diagnostic considerations for upper respiratory infection include upper respiratory infection, croup, otitis media, sinusitis, viral infection, bronchitis, influenza, pharyngitis, strep, uvulitis, pneumonia, Imaging Data Radiologist's impression: ITS Impressions Chest X-Ray 03/26/25 11:51 IMPRESSION: 1. No acute cardiopulmonary findings. Discharge Plan Discharge Clinical Impression: Bronchitis Patient Disposition: Home Condition: Stable Instructions: Antibiotic Form, Acute Bronchitis (ED) Additional Instructions: Chest x-rays negative for any acute cardiopulmonary process. DuoNeb treatment was given in the clinic today. Take prescription medications only as prescribed-prednisone, doxycycline, and albuterol inhaler Increase fluids and stay well hydrated May take Tylenol or motrin as directed on bottle for pain/fever May use Flonase 1 spray in each nare daily May take OTC antihistamines such as Zyrtec or Claritin daily as directed on bottle May apply Vicks vapor rub to chest to open sinuses Sinus rinses for congestion Cepacol spray, cough drops, throat lozenges, warm tea with honey/lemon, gargle salt water to soothe throat BRAT diet for diarrhea Clear liquids x 24 hours then advance as tolerated for nausea/vomiting Go to the ED if you develop a worsening in your condition- high fever not controlled by Tylenol or Motrin, dehydration, weakness, lethargy, shortness of breath, or chest pain. Follow up with your PCP in 3-5 days if symptoms persist. Patient Language: Mosotho Prescriptions: New prednisone 20 mg tablet 40 mg PO DAILY 5 Days Qty: 10 0RF doxycycline monohydrate 100 mg capsule 100 mg PO BID 7 Days Qty: 14 0RF albuterol sulfate 90 mcg/actuation HFA aerosol inhaler 2 puff inhalation Q4-6H PRN (Reason: shortness of breath or wheezing) 30 Days Qty: 8.5 0RF Follow-up/Referrals: Vesta,Leonides Mcmillan DO [Primary Care Provider, Unknown] Time of Disposition: 11:58 Quality NIHSS Nursing Documentation ED NIHSS nursing documentation: reviewed/agree
[2025-03-26] MEDS: ALBUTEROL SULFATE NEB 2.5 MG/3 ML INH INHALATION (11:47)
[2025-03-26] MEDS: IPRATROPIUM BR 0.02% INH SOLN 0.5 MG/2.5 ML VIAL INHALATION (11:48)
== END 2025-03-26 12:10 | disposition home or self-care (01) ==
PROVIDERS: Emergency Provider Nurse Practitioner Family; PCP Family Medicine
DX: J40 Bronchitis, not specified as acute or chronic (principal); F17.220 Nicotine dependence, chewing tobacco, uncomplicated
CPT/HCPCS: 71046; 94640; 99213; G0463